=== PATIENT | female | born 1965 | race Hispanic/Latino ===

== ENCOUNTER → 2020-12-14 | Day surgery (SDC) | payer BC, SELFPAY ==
[~2020-12-14] MED LIST: Acetaminophen 500 MG TAB ONE; Acetaminophen 500 MG TAB PO SCH; diphenhydrAMINE 50 MG/ML VIAL IVP SCH; diphenhydrAMINE 50 MG/ML VIAL ONE
== END ==
LOC: CSHSDC/OP 10:24
PROVIDERS: ATTEND Emergency Medicine
DX: Z23 Encounter for immunization (principal); U07.1 COVID-19
CPT/HCPCS: J1200; J7050; M0243; Q0243